=== PATIENT | female | born 1960 | race American Indian/Alaskan Native ===

== ENCOUNTER 2017-01-22 08:14 | Inpatient (IN) | payer OTHER ==
--- NOTE | 2017-01-22 08:42 | Emergency Department Report ---
ED Neuro Deficit HPI - General Chief Complaint: Neuro Symptoms/Deficit Stated Complaint: TIA Time Seen by Provider: 01/22/17 08:36 Source: patient Mode of arrival: Ambulatory Limitations: No Limitations - History of Present Illness Initial Comments: 56 year-old female presents to the emergency department with complaint of developing a generalized headache, slurred speech and right arm numbness and weakness that started about 20 minutes prior to presentation. She was driven in by a coworker. The patient says that the symptoms have pretty much resolved upon presentation here. On physical exam she appears to have some right-sided facial decreased sensation but the headache, slurred speech and right arm are back to her baseline. She did not take anything for her symptoms prior to presentation but she does take a baby aspirin daily. She denies any tobacco or illicit drug use or abuse. She has a medical history of hypertension. No recent travel or sick contacts at home. - Related Data Allergies/Adverse Reactions: Allergies Allergy/AdvReac Type Severity Reaction Status Date / Time No Known Allergies Allergy Unverified 01/22/17 08:16 ED Review of Systems ROS: Stated complaint: TIA Other details as noted in HPI Comment: All other systems reviewed and negative Constitutional: denies: chills, fever Eyes: denies: eye pain, eye discharge, vision change ENT: denies: ear pain, throat pain Respiratory: denies: cough, shortness of breath, wheezing Cardiovascular: denies: chest pain, palpitations Gastrointestinal: denies: abdominal pain, nausea, diarrhea Genitourinary: denies: urgency, dysuria, discharge Musculoskeletal: denies: back pain, joint swelling Skin: denies: rash, lesions Neurological: headache, weakness, numbness, other (slurred speech) ED Past Medical Hx - Past Medical History Hx Hypertension: Yes Hx Diabetes: Yes - Surgical History Past Surgical History?: Yes Additional Surgical History: cyst removed from back - Social History Smoking Status: Never Smoker Substance Use Type: Alcohol ED Neuro Physical Exam - General Limitations: No Limitations Suspected Stroke: No (TIA) - Other Other exam information: GENERAL: The patient is well-developed well-nourished. HENT: Normocephalic. Atraumatic. Patient has moist mucous membranes. EYES: Extraocular motions are intact. Pupils equal reactive to light bilaterally. No nystagmus. NECK: Supple. Trachea is midline. CHEST/LUNGS: Clear to auscultation. There is no respiratory distress noted. HEART/CARDIOVASCULAR: Regular. There is no tachycardia. There is no murmur. ABDOMEN: Abdomen is soft, nontender. Patient has normal bowel sounds. There is no abdominal distention. SKIN: Skin is warm and dry. NEURO: The patient is awake, alert, and oriented. The patient is cooperative. There are no motor or focal deficits seen. There is subjective decreased sensation to the right side of face compared to the left. No pronator drift or dysmetria. No facial asymmetry. The patient has normal speech. MUSCULOSKELETAL: There is no tenderness or deformity. There is no limitation range of motion. There is no evidence of acute injury. ED Course Vital Signs 01/22/17 01/22/17 01/22/17 08:24 08:59 09:04 Temperature 97.3 F L Pulse Rate 75 58 L Respiratory 18 18 16 Rate Blood Pressure 220/120 168/90 [Left] O2 Sat by Pulse 100 100 98 Oximetry - Reevaluation(s) Reevaluation #1: NIH Stroke Scale/Score (NIHSS) from [email or web address] on 01/22/2017 All calculations should be rechecked by clinician prior to use RESULT SUMMARY: 1 points NIH Stroke Scale INPUTS: 1A: Level of consciousness > 0 = Alert; keenly responsive 1B: Ask month and age > 0 = Both questions right 1C: 'Blink eyes' & 'squeeze hands' > 0 = Performs both tasks 2: Horizontal extraocular movements > 0 = Normal 3: Visual barrett > 0 = No visual loss 4: Facial palsy > 0 = Normal symmetry 5A: Left arm motor drift > 0 = No drift for 10 seconds 5B: Right arm motor drift > 0 = No drift for 10 seconds 6A: Left leg motor drift > 0 = No drift for 5 seconds 6B: Right leg motor drift > 0 = No drift for 5 seconds 7: Limb Ataxia > 0 = No ataxia 8: Sensation > 1 = Mild-moderate loss: less sharp/more dull 9: Language/aphasia > 0 = Normal; no aphasia 10: Dysarthria > 0 = Normal 11: Extinction/inattention > 0 = No abnormality 01/22/17 08:41 - Consultations Consultation #1: I spoke to the telemedicine neurologist, , who listened to the patient' s presentation and the resulting negative CT scan of the head and agrees with the plan for admission for further evaluation and monitoring but also agrees that the patient is not a candidate for TPA secondary to the low NIH score and improving symptoms. 01/22/17 09:12 - Lab Data Result diagrams: 01/22/17 08:36 01/22/17 08:36 Lab Results 01/22/17 01/22/17 01/22/17 Range/Units 08:36 08:36 08:36 WBC 12.9 H (4.5-11.0) K/mm3 RBC 4.77 (3.65-5.03) M/mm3 Hgb 12.9 (10.1-14.3) gm/dl Hct 38.4 (30.3-42.9) % MCV 81 (79-97) fl MCH 27 L (28-32) pg MCHC 34 (30-34) % RDW 14.2 (13.2-15.2) % Plt Count 386 (140-440) K/mm3 Lymph % (Auto) 31.3 (13.4-35.0) % [place] % (Auto) 6.1 (0.0-7.3) % Eos % (Auto) 0.5 (0.0-4.3) % Baso % (Auto) 0.6 (0.0-1.8) % Lymph # 4.0 (1.2-5.4) K/mm3 [place] # 0.8 (0.0-0.8) K/mm3 Eos # 0.1 (0.0-0.4) K/mm3 Baso # 0.1 (0.0-0.1) K/mm3 Seg Neutrophils % 61.5 (40.0-70.0) % Seg Neutrophils # 7.9 H (1.8-7.7) K/mm3 PT 12.1 L (12.2-14.9) Sec. INR 0.86 L (0.87-1.13) APTT 28.3 (24.2-36.6) Sec. Thrombin Time (15.1-19.6) Sec. Sodium 140 (137-145) mmol/L Potassium 4.4 (3.6-5.0) mmol/L Chloride 98.2 (98-107) mmol/L Carbon Dioxide 29 (22-30) mmol/L Anion Gap 17 mmol/L BUN 20 H (7-17) mg/dL Creatinine 1.0 (0.7-1.2) mg/dL Estimated GFR > 60 ml/min BUN/Creatinine Ratio 20 % Glucose 145 H (65-100) mg/dL POC Glucose (70-105) Calcium 9.9 (8.4-10.2) mg/dL Troponin T 0.022 (0.00-0.029) ng/mL 01/22/17 01/22/17 Range/Units 08:36 08:39 WBC (4.5-11.0) K/mm3 RBC (3.65-5.03) M/mm3 Hgb (10.1-14.3) gm/dl Hct (30.3-42.9) % MCV (79-97) fl MCH (28-32) pg MCHC (30-34) % RDW (13.2-15.2) % Plt Count (140-440) K/mm3 Lymph % (Auto) (13.4-35.0) % [place] % (Auto) (0.0-7.3) % Eos % (Auto) (0.0-4.3) % Baso % (Auto) (0.0-1.8) % Lymph # (1.2-5.4) K/mm3 [place] # (0.0-0.8) K/mm3 Eos # (0.0-0.4) K/mm3 Baso # (0.0-0.1) K/mm3 Seg Neutrophils % (40.0-70.0) % Seg Neutrophils # (1.8-7.7) K/mm3 PT (12.2-14.9) Sec. INR (0.87-1.13) APTT (24.2-36.6) Sec. Thrombin Time 16.2 (15.1-19.6) Sec. Sodium (137-145) mmol/L Potassium (3.6-5.0) mmol/L Chloride (98-107) mmol/L Carbon Dioxide (22-30) mmol/L Anion Gap mmol/L BUN (7-17) mg/dL Creatinine (0.7-1.2) mg/dL Estimated GFR ml/min BUN/Creatinine Ratio % Glucose (65-100) mg/dL POC Glucose 136 H (70-105) Calcium (8.4-10.2) mg/dL Troponin T (0.00-0.029) ng/mL - EKG Data -: EKG Interpreted by Me EKG shows normal: sinus rhythm, axis, intervals, QRS complexes (LVH), ST-T waves (T-wave inversions to the lateral leads) When compared to previous EKG there are: previous EKG unavailable Interpretation: other (sinus rhythm, normal axis, normal intervals, T-wave inversions to the lateral leads, LVH) - Radiology Data Radiology results: report reviewed CT HEAD WITHOUT CONTRAST: HISTORY: Neurological deficits, stroke. TECHNIQUE: Sequential 2.5mm CT images. COMPARISON: 12/02/07. FINDINGS: Cerebral Parenchyma: Within normal limits. Cerebellum: Within normal limits. Brainstem: Within normal limits. Ventricles: Normal. Sella: Normal. Extra-axial spaces: Normal. Basal Cisterns: Normal. Intracranial Hemorrhage: None. Midline Shift: None. Calvarium: Normal. Sinuses: Normal. Mastoid Air Cells: Normal. Visualized Orbits: Normal. IMPRESSION: Cranial CT scan within normal limits. These findings were discussed with Dr. Henriquez in the emergency department at 0853 hours Transcribed By: TTR Dictated By: TED MCPHERSON JR, MD Electronically Authenticated By: TED MCPHERSON JR, MD Signed Date/Time: 01/22/17 0854 - Medical Decision Making Patient is a NIH stroke scale of 1 but has improved greatly from the complaints that brought her into the emergency department. CT of the head was done stat which did not show any signs of ischemia, bleed or any acute process. Spoke with [facility] neurology who recommends admission for further evaluation and treatment. Labs unremarkable. Blood pressure has improved. Patient has been accepted for admission by the hospitalist service. - Differential Diagnosis CVA, TIA, hypertensive urgency - Thrombolytic Inclusion/Exclusion Thrombolytic Contraindications: Rapidily Improving s/s Critical Care Time: No Critical care attestation.: If time is entered above; I have spent that time in minutes in the direct care of this critically ill patient, excluding procedure time. ED Disposition Clinical Impression: Hypertensive urgency TIA (transient ischemic attack) Qualifiers: Transient cerebral ischemia type: unspecified Qualified Code(s): G45.9 - Transient cerebral ischemic attack, unspecified Disposition: OP ADMIT IP TO THIS HOSP Is pt being admited?: Yes Condition: Stable Time of Disposition: 10:16
[2017-01-22 08:43] LABS: Basophils % (Auto) 0.6 % (0.0-1.8); Eosinophils % (Auto) 0.5 % (0.0-4.3); Hematocrit 38.4 % (30.3-42.9); Hemoglobin 12.9 gm/dl (10.1-14.3); Mean Corpuscular HGB Conc 34 % (30-34); Mean Corpuscular Hemoglobin 27 pg (28-32); Mean Corpuscular Volume 81 fl (79-97); Platelet Count 386 K/mm3 (140-440); Red Blood Count 4.77 M/mm3 (3.65-5.03); Red Cell Distribution Width 14.2 % (13.2-15.2); White Blood Count 12.9 K/mm3 (4.5-11.0)
[2017-01-22 08:53] LABS: INR 0.86 (0.87-1.13)
[2017-01-22 08:54] LABS: Partial Thromboplastin Time 28.3 Sec. (24.2-36.6)
[2017-01-22] MEDS ORDERED: BABY ASPIRIN PO ONE (08:58)
--- NOTE | 2017-01-22 08:58 | Cat Scan Report ---
CT HEAD WITHOUT CONTRAST: HISTORY: Neurological deficits, stroke. TECHNIQUE: Sequential 2.5mm CT images. COMPARISON: 12/02/07. FINDINGS: Cerebral Parenchyma: Within normal limits. Cerebellum: Within normal limits. Brainstem: Within normal limits. Ventricles: Normal. Sella: Normal. Extra-axial spaces: Normal. Basal Cisterns: Normal. Intracranial Hemorrhage: None. Midline Shift: None. Calvarium: Normal. Sinuses: Normal. Mastoid Air Cells: Normal. Visualized Orbits: Normal. IMPRESSION: Cranial CT scan within normal limits. These findings were discussed with Dr. Henriquez in the emergency department at 0853 hours
[2017-01-22 09:01] LABS: Anion Gap 17 mmol/L; BUN/Creatinine Ratio 20; Blood Urea Nitrogen 20 mg/dL (7-17); Calcium 9.9 mg/dL (8.4-10.2); Carbon Dioxide 29 mmol/L (22-30); Chloride 98.2 mmol/L (98-107); Glucose 145 mg/dL (65-100); Potassium 4.4 mmol/L (3.6-5.0); Sodium 140 mmol/L (137-145)
[2017-01-22] MEDS ORDERED: DULCOLAX PR PRN (10:03)
[2017-01-22] MEDS ORDERED: TYLENOL PO PRN (10:03)
[2017-01-22] MEDS ORDERED: ZOFRAN IV PRN (10:03)
[2017-01-22] MEDS ORDERED: D50W (25GM) Syringe IV PRN (10:07)
--- NOTE | 2017-01-22 10:09 | History and Physical Report ---
<CHRISTIANO CARLISLE - Last Filed: 01/22/17 12:20> History of Present Illness Date of examination: 01/22/17 Date of admission: 01/22/2017 Chief complaint: Slurred speech, right arm, right face and tong numbness. History of present illness: Patient is a 56-year-old black female with past medical history of diabetes mellitus, migraine, hyperlipidemia and hypertension who presents to the Emergency department for right-sided face numbness, slurred speech with tongue numbness. Patient was at work around 8:15 AM speaking to co- worker with garbled speech she was speaking funny despite knowing what she wanted to say. Although patient noticed facial drooping, right-sided with numbness. Patient symptoms were resolved within few minutes before she got to the emergency department. Patient complains headache despite taking fioricet. Patient denies head trauma, change in vision, nausea, and vomiting. No dizziness , SOB, chest pain, or palpitations. Patient denied urinary incontinence despite evidence described above. Past History Past Medical History: diabetes, hypertension Past Surgical History: No surgical history Social history: denies: smoking, alcohol abuse Family history: denies: hypertension Medications and Allergies Allergies Allergy/AdvReac Type Severity Reaction Status Date / Time No Known Allergies Allergy Unverified 01/22/17 08:16 Home Medications Medication Instructions Recorded Confirmed Last Taken Type AtorvaSTATin [Lipitor] 10 mg PO QHS 01/22/17 01/22/17 Unknown History Furosemide [Lasix] 20 mg PO 3XW 01/22/17 01/22/17 01/22/17 History Metoprolol [Lopressor TAB] 50 mg PO QDAY 01/22/17 01/22/17 01/22/17 History cloNIDine [Catapres] 0.1 mg PO BID 01/22/17 01/22/17 01/22/17 History hydrOXYzine HCL [Atarax] 25 mg PO Q8H PRN 01/22/17 01/22/17 Unknown History metFORMIN [Glucophage] 500 mg PO BID 01/22/17 01/22/17 01/22/17 History Active Meds: Active Medications Acetaminophen (Tylenol) 650 mg PO Q4H PRN PRN Reason: Pain MILD(1-3)/Fever >100.5/RUIZ Atorvastatin Calcium (Lipitor) 20 mg PO QHS RIO Bisacodyl (Dulcolax) 10 mg RI QDAY PRN PRN Reason: Constipation unrelieved by MOM Enoxaparin Sodium (Lovenox) 40 mg SUB-Q QDAY RIO Ondansetron HCl (Zofran) 4 mg IV Q8H PRN PRN Reason: N/V unrelieved by Reglan Review of Systems Constitutional: no weight loss, no weight gain, no fever Ears, nose, mouth and throat: no ear pain, no tinnitis Cardiovascular: no palpitations, no rapid/irregular heart beat, no edema, no syncope, no shortness of breath Respiratory: no cough, no hemoptysis, no shortness of breath, no dyspnea on exertion Gastrointestinal: no abdominal pain, no nausea, no vomiting Genitourinary Female: no dysmenorrhea, no pelvic pain Rectal: no incontinence, no bleeding Musculoskeletal: arm numbness/tingling, no shooting arm pain Integumentary: no sores, no wounds, no jaundice Neurological: headaches, migraines, change in speech, no numbness, no tingling, no gait dysfunction, no double vision, no loss of vision, no hearing difficulties, no burning pain Psychiatric: no anxiety, no memory loss, no sleep disturbances Endocrine: no polyphagia, no excessive thirst, no polydipsia Hematologic/Lymphatic: no easy bruising, no easy bleeding Allergic/Immunologic: no urticaria, no allergic rhinitis Exam - Constitutional Vitals: Temp Pulse Resp BP Pulse Ox 97.3 F L 58 L 16 168/90 98 01/22/17 08:24 01/22/17 09:04 01/22/17 09:04 01/22/17 09:04 01/22/17 09:04 General appearance: Present: no acute distress - EENT Eyes: Present: PERRL ENT: hearing intact - Neck Neck: Present: supple - Respiratory Respiratory effort: normal Respiratory: bilateral: CTA - Cardiovascular Rhythm: regular Heart Sounds: Present: S1 & S2 - Abdominal General gastrointestinal: Present: soft, non-tender - Rectal Rectal Exam: deferred - Integumentary Integumentary: Present: clear, warm, dry - Musculoskeletal Musculoskeletal: strength equal bilaterally - Psychiatric Psychiatric: appropriate mood/affect - Neurologic Neurologic: moves all extremities - Allied Health Allied health notes reviewed: nursing Results - Labs CBC & Chem 7: 01/22/17 08:36 01/22/17 08:36 Labs: Laboratory Last Values WBC 12.9 K/mm3 (4.5-11.0) H 01/22/17 08:36 RBC 4.77 M/mm3 (3.65-5.03) 01/22/17 08:36 Hgb 12.9 gm/dl (10.1-14.3) 01/22/17 08:36 Hct 38.4 % (30.3-42.9) 01/22/17 08:36 MCV 81 fl (79-97) 01/22/17 08:36 MCH 27 pg (28-32) L 01/22/17 08:36 MCHC 34 % (30-34) 01/22/17 08:36 RDW 14.2 % (13.2-15.2) 01/22/17 08:36 Plt Count 386 K/mm3 (140-440) 01/22/17 08:36 Lymph % (Auto) 31.3 % (13.4-35.0) 01/22/17 08:36 [place] % (Auto) 6.1 % (0.0-7.3) 01/22/17 08:36 Eos % (Auto) 0.5 % (0.0-4.3) 01/22/17 08:36 Baso % (Auto) 0.6 % (0.0-1.8) 01/22/17 08:36 Lymph # 4.0 K/mm3 (1.2-5.4) 01/22/17 08:36 [place] # 0.8 K/mm3 (0.0-0.8) 01/22/17 08:36 Eos # 0.1 K/mm3 (0.0-0.4) 01/22/17 08:36 Baso # 0.1 K/mm3 (0.0-0.1) 01/22/17 08:36 Seg Neutrophils % 61.5 % (40.0-70.0) 01/22/17 08:36 Seg Neutrophils # 7.9 K/mm3 (1.8-7.7) H 01/22/17 08:36 PT 12.1 Sec. (12.2-14.9) L 01/22/17 08:36 INR 0.86 (0.87-1.13) L 01/22/17 08:36 APTT 28.3 Sec. (24.2-36.6) 01/22/17 08:36 Thrombin Time 16.2 Sec. (15.1-19.6) 01/22/17 08:36 Sodium 140 mmol/L (137-145) 01/22/17 08:36 Potassium 4.4 mmol/L (3.6-5.0) 01/22/17 08:36 Chloride 98.2 mmol/L (98-107) 01/22/17 08:36 Carbon Dioxide 29 mmol/L (22-30) 01/22/17 08:36 Anion Gap 17 mmol/L 01/22/17 08:36 BUN 20 mg/dL (7-17) H 01/22/17 08:36 Creatinine 1.0 mg/dL (0.7-1.2) 01/22/17 08:36 Estimated GFR > 60 ml/min 01/22/17 08:36 BUN/Creatinine Ratio 20 % 01/22/17 08:36 Glucose 145 mg/dL (65-100) H 01/22/17 08:36 POC Glucose 136 (70-105) H 01/22/17 08:39 Calcium 9.9 mg/dL (8.4-10.2) 01/22/17 08:36 Troponin T 0.022 ng/mL (0.00-0.029) 01/22/17 08:36 - Imaging and Cardiology CT Scan - head: image reviewed (unremarkable ) Assessment and Plan Assessment and plan: Patient is a 56-year-old black female with past medical history of diabetes mellitus and hypertension who presents to the Emergency department for right-sided face numbness, slurred speech with tong numbness. Transient Ischemic Attack No TPA candidate symptoms were resolved before she get to the ED. CT of the head shows no acute stroke or hemorrhage. We will obtain MRI of the brain We will obtain VL carotid to R/O stenosis We will get Echocardiogram Start on aspirin Resume on statins and will get complete lipid panel in the AM Frequent neuro checks. Neurology consult Supportive care Right-side numbness Resolved Ethology due toTIA Physical /occupational therapy on board Supportive care Hypertensive urgency/emergency Resume home antihypertensive medication IV hydralazine for SBP> 160 Closely monitor blood pressure Diabetes mellitus Accu-Chek before meals and at bedtime Sliding scale insulin/NovoLog We will obtain A1c Leukocytosis Reactive no source of Infection Hyperlipidemia Started on antilipid agents Discussed about the importance of physical exercise, low fat diet, reducing intake of high fluid fat foods to improve Cardiovascular disease DVT prophylaxis Lovenox Advance Directives: Yes VTE prophylaxis?: Chemical Contraindication Mechanical VTE Prophylaxis: Treatment Not Indicated Plan of care discussed with patient/family: Yes <DWAYNE NDIAYE R - Last Filed: 01/22/17 15:14> History of Present Illness Date of admission: 01/22/17 10:03 Medications and Allergies Active Meds: Active Medications Acetaminophen (Tylenol) 650 mg PO Q4H PRN PRN Reason: Pain MILD(1-3)/Fever >100.5/RUIZ Atorvastatin Calcium (Lipitor) 10 mg PO QHS RIO Bisacodyl (Dulcolax) 10 mg RI QDAY PRN PRN Reason: Constipation unrelieved by MOM Clonidine HCl (Catapres) 0.1 mg PO BID RIO Dextrose (D50w (25gm) Syringe) 50 ml IV PRN PRN PRN Reason: Hypoglycemia Enoxaparin Sodium (Lovenox) 40 mg SUB-Q QDAY RIO Furosemide (Lasix) 20 mg PO [id number]@[id number] [facility] Last Admin: 01/22/17 12:55 Dose: Not Given Hydroxyzine HCl (Atarax) 25 mg PO Q8H PRN PRN Reason: Itching Insulin Aspart (Novolog) 0 units SUB-Q AC [facility] PRN Reason: Protocol Last Admin: 01/22/17 12:47 Dose: Not Given Insulin Aspart (Novolog) 0 units SUB-Q QHS [facility] PRN Reason: Protocol Metoprolol Tartrate (Lopressor) 50 mg PO QDAY RIO Ondansetron HCl (Zofran) 4 mg IV Q8H PRN PRN Reason: N/V unrelieved by Reglan Exam - Constitutional Vitals: Temp Pulse Resp BP Pulse Ox 98.0 F 61 20 143/77 98 01/22/17 13:39 01/22/17 13:39 01/22/17 13:39 01/22/17 13:39 01/22/17 13:39 Results - Labs CBC & Chem 7: 01/22/17 08:36 01/22/17 08:36 Labs: Laboratory Last Values WBC 12.9 K/mm3 (4.5-11.0) H 01/22/17 08:36 RBC 4.77 M/mm3 (3.65-5.03) 01/22/17 08:36 Hgb 12.9 gm/dl (10.1-14.3) 01/22/17 08:36 Hct 38.4 % (30.3-42.9) 01/22/17 08:36 MCV 81 fl (79-97) 01/22/17 08:36 MCH 27 pg (28-32) L 01/22/17 08:36 MCHC 34 % (30-34) 01/22/17 08:36 RDW 14.2 % (13.2-15.2) 01/22/17 08:36 Plt Count 386 K/mm3 (140-440) 01/22/17 08:36 Lymph % (Auto) 31.3 % (13.4-35.0) 01/22/17 08:36 [place] % (Auto) 6.1 % (0.0-7.3) 01/22/17 08:36 Eos % (Auto) 0.5 % (0.0-4.3) 01/22/17 08:36 Baso % (Auto) 0.6 % (0.0-1.8) 01/22/17 08:36 Lymph # 4.0 K/mm3 (1.2-5.4) 01/22/17 08:36 [place] # 0.8 K/mm3 (0.0-0.8) 01/22/17 08:36 Eos # 0.1 K/mm3 (0.0-0.4) 01/22/17 08:36 Baso # 0.1 K/mm3 (0.0-0.1) 01/22/17 08:36 Seg Neutrophils % 61.5 % (40.0-70.0) 01/22/17 08:36 Seg Neutrophils # 7.9 K/mm3 (1.8-7.7) H 01/22/17 08:36 PT 12.1 Sec. (12.2-14.9) L 01/22/17 08:36 INR 0.86 (0.87-1.13) L 01/22/17 08:36 APTT 28.3 Sec. (24.2-36.6) 01/22/17 08:36 Thrombin Time 16.2 Sec. (15.1-19.6) 01/22/17 08:36 Sodium 140 mmol/L (137-145) 01/22/17 08:36 Potassium 4.4 mmol/L (3.6-5.0) 01/22/17 08:36 Chloride 98.2 mmol/L (98-107) 01/22/17 08:36 Carbon Dioxide 29 mmol/L (22-30) 01/22/17 08:36 Anion Gap 17 mmol/L 01/22/17 08:36 BUN 20 mg/dL (7-17) H 01/22/17 08:36 Creatinine 1.0 mg/dL (0.7-1.2) 01/22/17 08:36 Estimated GFR > 60 ml/min 01/22/17 08:36 BUN/Creatinine Ratio 20 % 01/22/17 08:36 Glucose 145 mg/dL (65-100) H 01/22/17 08:36 POC Glucose 127 (70-105) H 01/22/17 12:44 Calcium 9.9 mg/dL (8.4-10.2) 01/22/17 08:36 Troponin T 0.022 ng/mL (0.00-0.029) 01/22/17 08:36 Assessment and Plan Assessment and plan: I saw and evaluated the patient. I agree with the findings and the plan of care as documented in the Nurse Practitioner's~note, with the following corrections and additions.
[2017-01-22] MEDS ORDERED: ATIVAN IV ONE (11:03)
[2017-01-22] MEDS ORDERED: ATIVAN ONE (11:07)
[2017-01-22] MEDS ORDERED: ATARAX PO PRN (11:24)
--- NOTE | 2017-01-22 12:03 | Magnetic Resonance Report ---
MRI OF THE BRAIN WITHOUT CONTRAST: HISTORY: TIA PROCEDURE: Multiplanar, multisequence MR imaging of the brain without IV contrast was performed. FINDINGS: CT head without contrast performed 01/22/17 was reviewed. MRI demonstrates scattered foci of increased T2 signal in the white matter bilaterally consistent with chronic microangiopathy. Otherwise, the brain parenchyma signal intensity and its dimas-white interface are within normal limits on all sequences. No evidence for acute ischemia, hemorrhage or mass. No chronic infarct or extra-axial fluid collection. The midline structures are central. The basal cisterns are patent. Normal ventricular size. The orbital cavities and sella turcica demonstrate no abnormality. The visualized paranasal sinuses and mastoid air cells are well aerated. IMPRESSION: Nonspecific chronic white matter changes most consistent with chronic microangiopathy. No acute intracranial process.
[2017-01-22] MEDS: NOVOLOG SUB-Q SCH ×2 (12:47→16:30)
[2017-01-22] MEDS ORDERED: LASIX PO SCH (13:00)
[2017-01-22] MEDS: CATAPRES PO SCH (21:19)
[2017-01-22] MEDS ORDERED: NOVOLOG SUB-Q SCH (22:00)
[2017-01-23 05:55] VITALS: BP 122/55
[2017-01-23 06:12] LABS: Basophils % (Auto) 0.4 % (0.0-1.8); Eosinophils % (Auto) 0.9 % (0.0-4.3); Hemoglobin 12.4 gm/dl (10.1-14.3); Mean Corpuscular HGB Conc 34 % (30-34); Mean Corpuscular Hemoglobin 27 pg (28-32); Mean Corpuscular Volume 79 fl (79-97); Platelet Count 349 K/mm3 (140-440); Red Blood Count 4.65 M/mm3 (3.65-5.03); Red Cell Distribution Width 13.8 % (13.2-15.2); White Blood Count 10.7 K/mm3 (4.5-11.0)
[2017-01-23 06:26] LABS: Anion Gap 17 mmol/L; BUN/Creatinine Ratio 25; Blood Urea Nitrogen 25 mg/dL (7-17); Calcium 8.8 mg/dL (8.4-10.2); Carbon Dioxide 28 mmol/L (22-30); Chloride 99.9 mmol/L (98-107); Cholesterol 159 mg/dL (50-199); Glucose 127 mg/dL (65-100); HDL Cholesterol 68 mg/dL (40-59); LDL Cholesterol,Direct 73 mg/dL (50-130); Potassium 4.3 mmol/L (3.6-5.0); Sodium 141 mmol/L (137-145); Triglycerides 92 mg/dL (2-149)
--- NOTE | 2017-01-23 08:20 | Consultation ---
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 onset of right face/ arm numbness hx of diabetes altho good control MRI shows mild white matter changes but no acute stroke symptoms resolved so that this is TIA... advise medical therapy await carotid u/s and ECHO Thanks Past History Past Medical History: diabetes, hypertension Past Surgical History: No surgical history Social history: denies: smoking, alcohol abuse Family history: denies: hypertension Medications and Allergies Allergies Allergy/AdvReac Type Severity Reaction Status Date / Time No Known Allergies Allergy Unverified 01/22/17 08:16 Home Medications Medication Instructions Recorded Confirmed Last Taken Type AtorvaSTATin [Lipitor] 10 mg PO QHS 01/22/17 01/22/17 Unknown History Furosemide [Lasix] 20 mg PO 3XW 01/22/17 01/22/17 01/22/17 History Metoprolol [Lopressor TAB] 50 mg PO QDAY 01/22/17 01/22/17 01/22/17 History cloNIDine [Catapres] 0.1 mg PO BID 01/22/17 01/22/17 01/22/17 History hydrOXYzine HCL [Atarax] 25 mg PO Q8H PRN 01/22/17 01/22/17 Unknown History metFORMIN [Glucophage] 500 mg PO BID 01/22/17 01/22/17 01/22/17 History Active Meds: Active Medications Acetaminophen (Tylenol) 650 mg PO Q4H PRN PRN Reason: Pain MILD(1-3)/Fever >100.5/RUIZ Atorvastatin Calcium (Lipitor) 10 mg PO QHS [facility] Last Admin: 01/22/17 21:20 Dose: 10 mg Bisacodyl (Dulcolax) 10 mg DC QDAY PRN PRN Reason: Constipation unrelieved by MOM Clonidine HCl (Catapres) 0.1 mg PO BID [facility] Last Admin: 01/22/17 21:19 Dose: 0.1 mg Dextrose (D50w (25gm) Syringe) 50 ml IV PRN PRN PRN Reason: Hypoglycemia Enoxaparin Sodium (Lovenox) 40 mg SUB-Q QDAY [facility] Furosemide (Lasix) 20 mg PO MoWeFr@0600 [facility] Last Admin: 01/22/17 12:55 Dose: Not Given Hydroxyzine HCl (Atarax) 25 mg PO Q8H PRN PRN Reason: Itching Insulin Aspart (Novolog) 0 units SUB-Q AC [facility] PRN Reason: Protocol Last Admin: 01/22/17 16:30 Dose: Not Given Insulin Aspart (Novolog) 0 units SUB-Q QHS [facility] PRN Reason: Protocol Last Admin: 01/22/17 22:39 Dose: Not Given Metoprolol Tartrate (Lopressor) 50 mg PO QDAY [facility] Ondansetron HCl (Zofran) 4 mg IV Q8H PRN PRN Reason: N/V unrelieved by Reglan Physical Examination - Vital Signs Vital Signs: Vital Signs Temp Pulse Resp BP Pulse Ox 97.3 F L 75 18 220/120 100 01/22/17 08:24 01/22/17 08:24 01/22/17 08:24 01/22/17 08:24 01/22/17 08:24 Results - Laboratory Findings CBC and BMP: 01/23/17 04:58 01/23/17 04:58 Abnormal Lab Findings: Abnormal Labs 01/22/17 01/22/17 01/22/17 08:36 08:36 08:36 WBC 12.9 H MCH 27 L Seg Neutrophils # 7.9 H PT 12.1 L INR 0.86 L BUN 20 H Glucose 145 H POC Glucose Hemoglobin A1c HDL Cholesterol 01/22/17 01/22/17 01/23/17 08:39 12:44 04:58 WBC MCH Seg Neutrophils # PT INR BUN 25 H Glucose 127 H POC Glucose 136 H 127 H Hemoglobin A1c HDL Cholesterol 68 H 01/23/17 01/23/17 01/23/17 04:58 04:58 06:14 WBC MCH 27 L Seg Neutrophils # PT INR BUN Glucose POC Glucose 118 H Hemoglobin A1c 6.4 H HDL Cholesterol
[2017-01-23] MEDS: NOVOLOG SUB-Q SCH (09:50)
[2017-01-23] MEDS ORDERED: LOVENOX SUB-Q SCH (10:00)
[2017-01-23] MEDS ORDERED: LOPRESSOR PO SCH (10:00)
[2017-01-23] MEDS: CATAPRES PO SCH (10:02)
--- NOTE | 2017-01-23 11:29 | Discharge Summary ---
Providers - Providers Date of Admission: 01/22/17 10:03 Date of discharge: 01/23/17 Attending physician: DWAYNE NDIAYE 01/22/17 10:06 Consult to Physician [CONS] Routine Consulting Provider: ROSENDO GUEVARA Reason For Exam: TIA Place consult to:: Lizandro Notified:: yes Phone number called:: [phone] If yes, spoke with:: Yana Time called:: 14:00 Physical Therapy Evaluation and Treat [CONS] Routine Comment: Reason For Exam: TIA Primary care physician: EMERGENCY VEHICLE TECHNICIAN Hospitalization Condition: Stable Hospital course: Patient is a 56-year-old black female with past medical history of diabetes mellitus and hypertension who presents to the Emergency department for right-sided face numbness, slurred speech with tong numbness. Transient Ischemic Attack No TPA candidate symptoms were resolved before she get to the ED. CT of the head shows no acute stroke or hemorrhage. We will obtain MRI of the brain We will obtain VL carotid to R/O stenosis We will get Echocardiogram Start on aspirin Resume on statins and will get complete lipid panel in the AM Frequent neuro checks. Neurology consult Supportive care Right-side numbness Resolved Ethology due toTIA Physical /occupational therapy on board Supportive care Hypertensive urgency/emergency Resume home antihypertensive medication IV hydralazine for SBP> 160 Closely monitor blood pressure Diabetes mellitus Accu-Chek before meals and at bedtime Sliding scale insulin/NovoLog We will obtain A1c Leukocytosis Reactive no source of Infection Hyperlipidemia Started on antilipid agents Discussed about the importance of physical exercise, low fat diet, reducing intake of high fluid fat foods to improve Cardiovascular disease DVT prophylaxis Lovenox Disposition: DC- TO HOME OR SELFCARE Time spent for discharge: 36 min Core Measure Documentation - Palliative Care Palliative Care/ Comfort Measures: Not Applicable - Core Measures Any of the following diagnoses?: stroke (TIA) - VTE Discharge Requirements Deep Vein Thrombosis/Pulmonary Embolism Present on Admission: No Has pt received <5 days of overlap therapy or INR<2.0: No Anticoagulant overlap therapy prescribed at discharge: No Contraindication No Overlap Therapy order at DC: Not Indicated - Stroke Discharge Requirements Statin for LDL = or >70 mg/dl on DC: Yes Anticoag for atrial fib/atrial flutter: Not Applicable Reason for no anticoag for AF/F on DC: Not Indicated Antithrombotic for ischemic stroke: Yes Exam - Physical Exam Narrative exam: GEN: TRAEWN, NAD, AWAKE, ALERT, ORIENTATED 3 HEENT: NCAT, EOMI, PERRL, OP Clear NECK: supple, no adenopathy, no thyromegaly, no JVD CVS/HEART: RRR, NORMAL S1S2, NO JVD, pulses present bilaterally CHEST/LUNGS: CTA B, Symmetrical chest expansion, good air entry bilaterally GI/Abdomen: soft, NTND, good bowel sounds, no guarding or rebound /Bladder: no suprapubic tenderness, no CVA or paraspinal tenderness EXT/Skin: no c/c/e, no obvious rash MSK: FROM x 4 Neuro: CN 2-12 grossly intact, no focal deficits Psych: calm - Constitutional Vitals: Temp Pulse Resp BP Pulse Ox 98.3 F 61 18 122/55 98 01/23/17 05:02 01/23/17 10:02 01/23/17 05:02 01/23/17 10:02 01/23/17 05:02 Plan Activity: other (no strenous activity until cleared by pcp) Diet: low salt, diabetic Special Instructions: record blood sugar diary Additional Instructions: Added aspirin Follow up with: PRIMARY MD PRIYANKA [Primary Care Provider] - 3-5 Days CAROLINA HAIR MD [Referring] - 7 Days Prescriptions: Aspirin 325 mg PO DAILY #30 tablet
--- NOTE | 2017-01-24 01:32 | Consultation ---
HISTORY OF PRESENT ILLNESS: A 56-year-old black female admitted to [facility] as emergency admission. The patient presented to the hospital with onset of tingling and numbness to the right side of the face and the right hand. She initially presented to the Emergency Room with speech slurring, generalized headache, right arm numbness, which started 20 minutes prior to admission. After she had gotten here, some of her symptoms have resolved. She has a prior medical history of hypertension and diabetes. The patient initially presented to the hospital, she had an NIH stroke scale of 1. The patient's PT was 12.1. Her hematocrit is 38.4, white blood count slightly elevated at 12,900, and her blood glucose was 136. EKG was unremarkable. The patient had a CT scan of the head, which was within normal limits. The patient was initially assessed. Subsequently, the patient's condition did improve. She was admitted further to evaluate her for evidence of possible stroke or TIA. Carotid ultrasound has been done, the reports have not with which to return. She has white matter changes suggests microangiopathy on the MR, but no acute stroke. PHYSICAL EXAMINATION: GENERAL: At this point is unremarkable. She is fully alert. All of her symptoms have completely resolved. I have reviewed her MRI scan of the brain is normal. I have reviewed over her vital signs. Her current blood pressure is well regulated at 122/55. She has a pulse rate of 61, temperature 98.3, respirations are 18. The O2 saturations on room air are 98%. Earlier, her blood pressure was slightly elevated on the systolic range of 149. Other laboratory results have been reviewed by me personally are that her BUN is slightly elevated at 20, and her glucoses have been in the range of 145 although presently, there are 81, cholesterol is elevated. HDL is 68, which is essentially normal. Her cholesterol and triglycerides are entirely normal. IMPRESSION: This patient's symptoms strongly suggest transient ischemic attack of the left hemisphere. She has white matter changes of microangiopathy. I am awaiting the dictated report of the carotid ultrasound and she is going for an echocardiogram at the present time. I will leave medical therapy should suffice to control the blood pressure, high-dose statin, and aspirin 325. At this point, the patient for pending results of the carotid; should be able to go home today. JOB# [id number] TJ/JOHN
== END 2017-01-23 13:30 | disposition home or self-care (01) | DRG 69 ==
LOC: ED 08:14 → 3A 10:03
PROVIDERS: ADMIT Internal Medicine; ATTEND Internal Medicine
DX: G45.9 Transient cerebral ischemic attack, unspecified (principal); I16.1 Hypertensive emergency; I16.0 Hypertensive urgency; E78.5 Hyperlipidemia, unspecified; I10 Essential (primary) hypertension; E11.9 Type 2 diabetes mellitus without complications; D72.829 Elevated white blood cell count, unspecified; R29.701 NIHSS score 1; Z79.84 Long term (current) use of oral hypoglycemic drugs
CPT/HCPCS: 36415; 70450; 70551; 80048; 80061; 82962; 83036; 84484; 85025; 85610; 85670; 85730; 93005; 93010; 93306; 93880; 96374; A9270-GY; J1650; J2060

== ENCOUNTER 2018-12-09 11:45 | Emergency (ER) | payer OTHER ==
--- NOTE | 2018-12-09 12:04 | Emergency Department Report ---
Blank Doc - Documentation Documentation: 58-year-old female that presents with uncontrolled HTN. Was sent by nephrology. Denies any symptoms or pain. This initial assessment/diagnostic orders/clinical plan/treatment(s) is/are subject to change based on patient's health status, clinical progression and re-assessment by fellow clinical providers in the ED. Further treatment and workup at subsequent clinical providers discretion. Patient/guardians urged not to elope from the ED as their condition may be serious if not clinically assessed and managed. Initial orders include: 1- Patient sent to [facility] for further evaluation and treatment 2- labs 3- UA
[2018-12-09] MEDS ORDERED: hydrALAZINE 20 MG/1 ML INJ IV ONE (12:48)
[2018-12-09] MEDS ORDERED: LABETALOL 20 MG/4 ML INJ IV ONE ×2 (13:06→14:17)
--- NOTE | 2018-12-09 13:07 | Emergency Department Report ---
ED General Adult HPI - General Chief complaint: High BP Stated complaint: HBP Time Seen by Provider: 12/09/18 12:02 Source: patient Mode of arrival: Ambulatory Limitations: No Limitations - History of Present Illness Initial comments: This is a 58-year-old -[place] female who presents to the emergency room with elevated blood pressure. Past medical history of hypertension, diabetes type 2, asthma diabetic retinopathy. Patient was sent to the emergency room from her nephrologists office Dr. Pardo. Patient states she went to her marker machine this morning for scheduled appointment and her blood pressure was elevated. They instructed her to follow-up in the emergency room. Patient states she decided to follow-up with her implementation services analyst Dr. Pardo since he was across the [place]. They checked her blood pressure and it was 220/110. They instructed her to follow-up in the emergency room. Patient denies chest pain, shortness of breath, palpitations, dizziness, visual changes, or urinary changes. -: This morning Severity scale (0 -10): 0 Improves with: none Worsens with: none Associated Symptoms: denies other symptoms Treatments Prior to Arrival: none - Related Data Home Medications Medication Instructions Recorded Confirmed Last Taken AtorvaSTATin 10 mg PO QHS 01/22/17 07/24/17 Unknown Furosemide [Lasix] 20 mg PO 3XW 01/22/17 07/24/17 07/23/17 Metoprolol [Lopressor TAB] 50 mg PO QDAY 01/22/17 07/24/17 07/23/17 metFORMIN [Glucophage] 500 mg PO BID 01/22/17 07/24/17 07/23/17 Losartan [Cozaar] 25 mg PO QDAY 07/24/17 07/24/17 07/23/17 Previous Rx's Medication Instructions Recorded Last Taken Type Aspirin 325 mg PO DAILY #30 tablet 01/23/17 Unknown Rx cloNIDine [Catapres] 0.2 mg PO BID #60 tablet 07/26/17 Unknown Rx Allergies Allergy/AdvReac Type Severity Reaction Status Date / Time hydralazine AdvReac Hives Verified 12/09/18 13:12 ED Review of Systems ROS: Stated complaint: HBP Other details as noted in HPI Constitutional: denies: chills, fever Respiratory: denies: cough, shortness of breath, wheezing Cardiovascular: denies: chest pain, palpitations Gastrointestinal: denies: abdominal pain, nausea, diarrhea Skin: denies: rash, lesions Neurological: denies: headache, weakness, paresthesias Psychiatric: denies: anxiety, depression ED Past Medical Hx - Past Medical History Previous Medical History?: Yes Hx Hypertension: Yes Hx Congestive Heart Failure: No Hx Diabetes: Yes Hx Asthma: No Hx COPD: No Hx Dementia: No - Surgical History Past Surgical History?: Yes Additional Surgical History: cyst removed from back - Social History Smoking Status: Never Smoker Substance Use Type: None - Medications Home Medications: Home Medications Medication Instructions Recorded Confirmed Last Taken Type AtorvaSTATin 10 mg PO QHS 01/22/17 07/24/17 Unknown History Furosemide [Lasix] 20 mg PO 3XW 01/22/17 07/24/17 07/23/17 History Metoprolol [Lopressor TAB] 50 mg PO QDAY 01/22/17 07/24/17 07/23/17 History metFORMIN [Glucophage] 500 mg PO BID 01/22/17 07/24/17 07/23/17 History Aspirin 325 mg PO DAILY #30 tablet 01/23/17 07/24/17 Unknown Rx Losartan [Cozaar] 25 mg PO QDAY 07/24/17 07/24/17 07/23/17 History cloNIDine [Catapres] 0.2 mg PO BID #60 tablet 07/26/17 Unknown Rx ED Physical Exam - General Limitations: No Limitations General appearance: alert, in no apparent distress, obese - Respiratory Respiratory exam: Present: normal lung sounds bilaterally. Absent: respiratory distress, wheezes, rales, rhonchi, stridor, chest wall tenderness - Cardiovascular Cardiovascular Exam: Present: regular rate, normal rhythm. Absent: systolic murmur, diastolic murmur, rubs, gallop - GI/Abdominal GI/Abdominal exam: Present: soft, normal bowel sounds - Neurological Exam Neurological exam: Present: alert, oriented X3, normal gait - Psychiatric Psychiatric exam: Present: normal affect, normal mood - Skin Skin exam: Present: warm, dry, intact, normal color. Absent: rash ED Course Vital Signs 12/09/18 12/09/18 12/09/18 12:06 13:45 14:00 Temperature 97.5 F L Pulse Rate 66 76 76 Respiratory 16 18 Rate Blood Pressure 198/148 252/121 Blood Pressure 252/121 [Left] O2 Sat by Pulse 100 Oximetry 12/09/18 12/09/18 12/09/18 14:04 14:33 14:35 Temperature Pulse Rate 76 77 77 Respiratory 18 Rate Blood Pressure 161/107 Blood Pressure 235/122 161/107 [Left] O2 Sat by Pulse Oximetry 12/09/18 14:51 Temperature Pulse Rate Respiratory 18 Rate Blood Pressure Blood Pressure [Left] O2 Sat by Pulse 99 Oximetry ED Medical Decision Making - Lab Data Result diagrams: 12/09/18 12:45 12/09/18 12:45 Lab Results 12/09/18 12/09/18 12/09/18 Range/Units 12:45 12:45 Unknown WBC 10.8 (4.5-11.0) K/mm3 RBC 4.67 (3.65-5.03) M/mm3 Hgb 12.6 (10.1-14.3) gm/dl Hct 37.6 (30.3-42.9) % MCV 80 (79-97) fl MCH 27 L (28-32) pg MCHC 34 (30-34) % RDW 14.7 (13.2-15.2) % Plt Count 301 (140-440) K/mm3 Lymph % (Auto) 24.9 (13.4-35.0) % [place] % (Auto) 5.5 (0.0-7.3) % Eos % (Auto) 0.6 (0.0-4.3) % Baso % (Auto) 0.4 (0.0-1.8) % Lymph # 2.7 (1.2-5.4) K/mm3 [place] # 0.6 (0.0-0.8) K/mm3 Eos # 0.1 (0.0-0.4) K/mm3 Baso # 0.0 (0.0-0.1) K/mm3 Seg Neutrophils % 68.6 (40.0-70.0) % Seg Neutrophils # 7.4 (1.8-7.7) K/mm3 Sodium 141 (137-145) mmol/L Potassium 4.5 (3.6-5.0) mmol/L Chloride 102.4 (98-107) mmol/L Carbon Dioxide 25 (22-30) mmol/L Anion Gap 18 mmol/L BUN 23 H (7-17) mg/dL Creatinine 1.1 (0.7-1.2) mg/dL Estimated GFR > 60 ml/min BUN/Creatinine Ratio 21 % Glucose 133 H (65-100) mg/dL Calcium 9.7 (8.4-10.2) mg/dL Urine Color Straw (Yellow) Urine Turbidity Clear (Clear) Urine pH 6.0 (5.0-7.0) Ur Specific [place] 1.012 (1.003-1.030) Urine Protein 30 mg/dl (Negative) mg/dL Urine Glucose (UA) Neg (Negative) mg/dL Urine Ketones Neg (Negative) mg/dL Urine Blood Neg (Negative) Urine Nitrite Neg (Negative) Urine Bilirubin Neg (Negative) Urine Urobilinogen < 2.0 (<2.0) mg/dL Ur Leukocyte Esterase Tr (Negative) Urine WBC (Auto) 1.0 (0.0-6.0) /HPF Urine RBC (Auto) 3.0 (0.0-6.0) /HPF U Epithel Cells (Auto) 1.0 (0-13.0) /HPF Urine Mucus Few /HPF - EKG Data -: No EKG Interpreted by Me (EKG interpreted by the attending) EKG shows normal: sinus rhythm Rate: normal - Medical Decision Making This is a 58 y.o. female that presents to the emergency room with elevated blood pressure from doctor's office. History of HTN, chronic kidney disease, diabetic retinopathy, and diabetes type 2. Patient denies chest pain, shortness of breath, nausea or vomiting, palpitations, headache, or visual changes. Patient is stable and was examined by me. Given labetalol 10 mg IV 1. Blood pressure 161/107, which is trending down. Instructed to continue current blood pressure medication. Follow-up with her implementation services analyst to manage hypertension. Discussed plan with patient and agreed to plan. No further questions noted by the patient. Discharged home in stable condition. Follow up with PCP in 1 week. Critical care attestation.: If time is entered above; I have spent that time in minutes in the direct care of this critically ill patient, excluding procedure time. ED Disposition Clinical Impression: Hypertensive urgency Disposition: DC-01 TO HOME OR SELFCARE Is pt being admited?: No Condition: Stable Instructions: Chronic Hypertension (ED), Hypertension (ED) Additional Instructions: Encourage stop smoking to reduce cardiovascular risk. Moderate caffeine consumption is acceptable. Begin and maintain aerobic exercise, with a goal of at least 30 minutes of moderate intensity, dynamic aerobic exercise (walking, jogging, cycling, or swimming) 5 days per week to total 150 minutes as tolerated or recommended by a physician. Take medication daily as prescribed. Follow up with Primary Care Provider in 1 week. Referrals: JOSE E PARDO MD [Staff Physician] - 3-5 Days Forms: Work/School Release Form(ED), Accompanied Note Time of Disposition: 14:47
[2018-12-09 13:39] LABS: Basophils % (Auto) 0.4 % (0.0-1.8); Eosinophils # (Auto) 0.1 K/mm3 (0.0-0.4); Eosinophils % (Auto) 0.6 % (0.0-4.3); Hematocrit 37.6 % (30.3-42.9); Hemoglobin 12.6 gm/dl (10.1-14.3); Lymphocytes # (Auto) 2.7 K/mm3 (1.2-5.4); Lymphocytes % (Auto) 24.9 % (13.4-35.0); Mean Corpuscular HGB Conc 34 % (30-34); Mean Corpuscular Volume 80 fl (79-97); Monocytes # (Auto) 0.6 K/mm3 (0.0-0.8); Monocytes % (Auto) 5.5 % (0.0-7.3); Platelet Count 301 K/mm3 (140-440); Red Blood Count 4.67 M/mm3 (3.65-5.03); Red Cell Distribution Width 14.7 % (13.2-15.2)
[2018-12-09 13:56] LABS: BUN/Creatinine Ratio 21; Blood Urea Nitrogen 23 mg/dL (7-17); Calcium 9.7 mg/dL (8.4-10.2); Hemolysis Index 5
[2018-12-09 14:09] LABS: Bilirubin,Urine NEG (Negative); Blood,Urine NEG (Negative); Color,Urine Straw (Yellow); Mucus,Urine FEW /HPF; Urobilinogen,Urine < 2.0 mg/dL (<2.0)
[2018-12-09] MEDS ORDERED: amLODIPine 5 MG TAB PO ONE (14:17)
[2018-12-09 14:34] VITALS: BP 161/107
== END 2018-12-09 14:51 | disposition home or self-care (01) ==
LOC: ED 11:45
DX: I16.0 Hypertensive urgency (principal); I10 Essential (primary) hypertension; Z98.890 Other specified postprocedural states; Z88.1 Allergy status to other antibiotic agents
CPT/HCPCS: 36415; 80048; 81001; 85025; 93005; 93010; 96374